=== PATIENT | male | born 1980 | race African-American/Black ===

== ENCOUNTER 2023-09-29 22:42 | Emergency (ER) | payer MEDICAID, OTHER ==
[~2023-09-29] VITALS: Ht 193 cm; Wt 133.6 kg
[2023-09-29 22:53] VITALS: BP 133/100; PULSE 100; RESP 16; TEMP 98.5
== END 2023-09-30 00:58 | disposition left against medical advice (07) ==
LOC: EMS 22:42
DX: H53.8 Other visual disturbances (principal); Z53.21 Procedure and treatment not carried out due to patient leaving prior to being seen by health care provider